=== PATIENT | male | born 1945 | race Caucasian/White ===

== ENCOUNTER → 2017-03-04 | Day surgery (SDC) | payer MEDICARE, OTHER ==
[~2017-03-04] VITALS: Ht 185.4 cm; Wt 98.9 kg
[~2017-03-04] MED LIST: BYSTOLIC20 MG PO; COLCRYS0.6 MG PO; CPAP INH; FLOMAX0.4 MG PO; LASIX40 MG PO; LEVAQUIN500 MG PO; LOSARTAN POTASS25 MG PO; NORCO 5-325 TA1 EACH PO; PERCOCET 5-3251 EACH PO; TYLENOL EXTRA500 MG PO
--- NOTE | ~2017-03-04 | OR ---
PATIENT'S NAME: FORTUNATO DIAZ [facility] AGE: 72 Y [address] ROOM: [place] [address] [place] [facility] [place]: 03/04/2017 OR/Procedure Report DISCHARGE DATE: FAMILY PHYSICIAN: Jenaro Baca MD ATTENDING PHYSICIAN: Dania Alvarado SURGEON: Dania Alvarado MD SOCIAL WORK PROGRAM COORDINATOR: DATE OF PROCEDURE: 03/04/2017 PREOPERATIVE DIAGNOSIS: Adenocarcinoma of the prostate. POSTOPERATIVE DIAGNOSIS: Adenocarcinoma of the prostate. PROCEDURE PERFORMED: Transperineal ultrasound-guided implantation of I-125 seeds. SURGEON: Radiation oncologist, Dr. Rocha. ANESTHESIA: General. COMPLICATIONS: None. INDICATION FOR PROCEDURE: The patient is a 72-year-old male with adenocarcinoma of the prostate, Carmel 6 bilaterally with a PSA of 6.72 at the time of diagnosis by Dr. Martinez. The prostate volume was 29.8 cm. PROCEDURE IN DETAIL: After informed consent was obtained, the patient was brought to the operating room. A general anesthetic was applied, and he was placed in the dorsal lithotomy position with wedge cushion underneath the buttocks. The ultrasound equipment was assembled and the probe was placed in the rectum and serial contours of prostate were taken at 5 mm intervals using axial imaging to generate a prostate volume of 29.8 mL. Sagittal imaging was then used to determine the length of the prostate in the anterior, mid, and posterior portion of gland from base to apex. These figures 25, 31, and 34 mm respectively were used by the radiation oncologist to perform dosimetry calculations, computing the #125 seeds implant as well as spacing between the seeds. The perineal area was prepped with Betadine paint. The template was attached to the sled device and pushed against the perineum. Using the largest transverse image of the prostate, needles were placed at least 7 mm above the anterior rectal wall and 1 cm apart. The needles were placed in the entire periphery. Following this, the imaging was switched to the sagittal plane. The tip of each individual needle was advanced to the base of the gland and the radiation oncologist deposited the seeds. The needle was then removed. This was repeated continuously until all the needles in the periphery were implanted and removed. We then switched back to the transverse PATIENT'S NAME: FORTUNATO DIAZ [facility] AGE: 72 Y [address] ROOM: [place], [place] [address] [place] [facility] [place]: 03/04/2017 OR/Procedure Report DISCHARGE DATE: FAMILY PHYSICIAN: Jenaro Baca MD ATTENDING PHYSICIAN: Dania Alvarado plane using the largest image. Hugo were then placed in the anterior portion of the gland, approximately 1 cm from the periphery, 1 cm apart, and at least 5 mm from the urethra. Imaging was again switched back to the sagittal plane. The tip of each needle was then again advanced to the base of the gland and the seeds were deposited as described in the periphery. At the end of the case, a cystogram was performed, which demonstrated good deposition of seeds throughout the gland and no free seeds within the bladder or urethra. The patient tolerated the procedure well, transferred to the recovery room in good condition. MD NEEMA ROSAS/modl /[id number] CC: Susie Rocha MD, PhD Jenaro Baca MD d: 03/05/17 0044 t: 03/10/17 0902, OPERATIVE SUMMARY
--- NOTE | ~2017-03-04 | RTPR ---
PATIENT'S NAME: BALDOMERO DIAZ [facility] AGE: 72 Y [address] ROOM: [place] [address] LOCATION: [facility] – [place] ADMIT DATE: 03/04/2017 Oncology Report DISCHARGE DATE: FAMILY PHYSICIAN: Jenaro Baca MD ATTENDING PHYSICIAN: Dania Alvarado RADIATION THERAPY PROCEDURE NOTE DATE OF SERVICE: 03/04/2017 PREOPERATIVE DIAGNOSIS: Carcinoma of the prostate. POSTOPERATIVE DIAGNOSIS: Carcinoma of the prostate. PROCEDURE PERFORMED: Transperineal ultrasound-guided implantation of iodine-125. RADIATION ONCOLOGIST: Tom Gentile MD, PhD. UROLOGIST: Dania Alvarado MD. ANESTHESIA: General. COMPLICATIONS: None. OPERATIVE FINDINGS: Prostate volume of 29.8 mL. INDICATIONS: Mr. Baldomero Diaz is a 72-year-old white male with an adenocarcinoma of the prostate, Raul grade 3+3=6, preimplant PSA of 7.28, clinical stage IIB, T2c, NX, M0. PROCEDURE IN DETAIL: The patient was brought to the operating room for insertion of iodine-125 seeds into the prostate gland for treatment of an adenocarcinoma of a Grundy score of 3+3=6 and a PSA of 7.28. The patient was placed under general anesthesia, then placed in the dorsal lithotomy position with a wedge under PATIENT'S NAME: BALDOMERO DIAZ [facility] AGE: 72 Y [address] ROOM: [place] [address] LOCATION: [facility] [place] ADMIT DATE: 03/04/2017 Oncology Report DISCHARGE DATE: FAMILY PHYSICIAN: Jenaro Baca MD ATTENDING PHYSICIAN: Dania Alvarado his buttocks to elevate the perineum. The patient's rectum was irrigated with sterile water and a Mccarthy catheter was inserted into the patient's bladder and clamped. A transrectal ultrasound probe was introduced into the patient's rectum, and the prostate was measured using planimetry. The prostate volume was determined to be 29.8 mL. The patient was then prepped and draped in the usual sterile fashion. [place] were placed through a special perineal template under ultrasound guidance into the prostate gland. During each of these needle placements and each of the following needle placements, the transrectal ultrasound was used to guide the needles and determine the proper position and depth. Care was taken to avoid the patient's bladder, urethra, and rectal mucosa. 14 needles were placed around the periphery of the patient's prostate gland. 56 iodine-125 seeds were then deposited evenly through each of these needles using an applicator. The needles were then removed and new needles were placed in the interior of the prostate gland. A total of 2 needles were placed. 8 iodine-125 seeds were deposited through these needles into the prostate gland. The activity per seed was 0.375 millicurie per seed. The total number of seeds implanted was 64. The total activity implanted was 24 millicuries. Fluoroscopy was used at the end of the procedure. A cystogram was performed after all the seeds had been placed and no stray seeds were found in the bladder or urethra. A survey was performed. The activity at the patient's surface was 14 mrem/hour at the abdomen, 10 mrem/hour at the perineum, 0.5 mrem/hour at 1 meter. The rest of the operating room was surveyed including the equipment table, the patient's Mccarthy bag, the laundry, and trash containers, and no stray sources of radiation were found. The patient tolerated the procedure well, was transferred to the PACU without incident. The patient will be seen in 1 months' time by ourselves and Urology for followup examination and dosimetry. The patient tolerated the procedure well. We thank you for allowing us to participate in his care. He is told to contact us should he have any problems in the interim. TOM GENTILE MD, PHD ELDERL/modl /[id number] CC: MD Jenaro Levine MD d: 03/10/17 1442 t: 03/28/17 1008, CONSULTATION REPORT
== END | disposition disaster alternative care site (69) ==
LOC: GPOC 02-25 09:00 → GSDC 09:00
PROC: 0VH071Z Insertion of Radioactive Element into Prostate, Via Natural or Artificial Opening (ICD-10-PCS; principal; 2017-03-04)
DX: C61 Malignant neoplasm of prostate (principal); I48.1 Persistent atrial fibrillation; I73.9 Peripheral vascular disease, unspecified; G47.33 Obstructive sleep apnea (adult) (pediatric); I50.42 Chronic combined systolic (congestive) and diastolic (congestive) heart failure; M51.37 Other intervertebral disc degeneration, lumbosacral region; I10 Essential (primary) hypertension; M15.9 Polyosteoarthritis, unspecified; E66.9 Obesity, unspecified; Z87.891 Personal history of nicotine dependence; Z98.890 Other specified postprocedural states; Z99.89 Dependence on other enabling machines and devices; Z79.01 Long term (current) use of anticoagulants; Z79.899 Other long term (current) drug therapy; Z91.030 Bee allergy status; Z88.0 Allergy status to penicillin; Z88.1 Allergy status to other antibiotic agents
CPT/HCPCS: C1715; C2638; C2639; J1100; J1644; J2001; J2250; J2405; J3010; J7030